=== PATIENT | male | born 1990 | race African-American/Black ===

== ENCOUNTER 2018-05-04 16:32 | Emergency (ER) | payer OTHER ==
[2018-05-04] MEDS ORDERED: KETOROLAC 30 MG INJ IM (18:49)
[2018-05-04] MEDS: HYDROCODONE/APAP (5/325) TAB PO (19:21)
== END 2018-05-04 19:32 | disposition home or self-care (01) ==
LOC: FTE 16:32
DX: M54.42 Lumbago with sciatica, left side (principal)
CPT/HCPCS: 99283-25; Z7502

== ENCOUNTER 2018-05-13 13:34 | Emergency (ER) | payer OTHER | END 2018-05-13 19:30 | disposition home or self-care (01) | LOC: FTE 13:34 | DX: M54.40 Lumbago with sciatica, unspecified side (principal); M51.37 Other intervertebral disc degeneration, lumbosacral region; M51.36 Other intervertebral disc degeneration, lumbar region | CPT/HCPCS: 72131; 99284-25 ==

== ENCOUNTER 2018-05-14 17:38 | Emergency (ER) | payer SELFPAY, OTHER | END 2018-05-14 18:01 | disposition left against medical advice (07) | LOC: E/R 18:01 | DX: Z53.21 Procedure and treatment not carried out due to patient leaving prior to being seen by health care provider (principal) ==

== ENCOUNTER 2018-05-25 17:36 | Emergency (ER) | payer SELFPAY | END 2018-05-25 19:35 | disposition left against medical advice (07) | LOC: FTE 17:36 | DX: Z53.21 Procedure and treatment not carried out due to patient leaving prior to being seen by health care provider (principal) ==

== ENCOUNTER 2018-05-28 15:35 | Emergency (ER) | payer OTHER ==
[2018-05-28] MEDS: KETOROLAC 60 MG INJ IM (17:32)
== END 2018-05-28 17:42 | disposition home or self-care (01) ==
LOC: FTE 15:35
DX: M54.42 Lumbago with sciatica, left side (principal)
CPT/HCPCS: 96372; 99284-25

== ENCOUNTER 2018-07-23 18:48 | Emergency (ER) | payer SELFPAY, OTHER | END 2018-07-23 20:02 | disposition left against medical advice (07) | LOC: FTE 18:48 | DX: Z53.21 Procedure and treatment not carried out due to patient leaving prior to being seen by health care provider (principal) ==